=== PATIENT | male | born 1940 | race Hispanic/Latino ===

== ENCOUNTER → 2020-01-06 | Day surgery (SDC) | payer MEDICARE, OTHER ==
[2020-01-01 10:47] LABS: BASOPHILS % 0.6 % (0.0-1.0); EOSINOPHILS # (AUTO) 0.5 (0.0-0.4); EOSINOPHILS % 6.6 % (0.0-6.0); HEMATOCRIT 36.5 % (38.2-49.6); HEMOGLOBIN 11.7 g/dL (14.0-18.0); LYMPHOCYTES # (AUTO) 1.3 (1.0-3.2); LYMPHOCYTES % 19.1 % (18.0-39.1); MEAN CORPUSCULAR HEMOGLOBIN 31.3 pg (28-32); MEAN CORPUSCULAR HGB CONC 32.1 g/dL (31-35); MEAN CORPUSCULAR VOLUME 97.6 fL (81-99); MONOCYTES # (AUTO) 0.6 (0.2-0.8); MONOCYTES % 9.3 % (4.4-11.3); NEUTROPHILS # (AUTO) 4.4 (2.1-6.9); NEUTROPHILS % 64.1 % (38.7-80.0); PLATELET COUNT 199 x10e3/uL (140-360); RED BLOOD COUNT 3.74 x10e6/uL (4.3-5.7); RED CELL DISTRIBUTION WIDTH 13.2 % (11.7-14.4)
[2020-01-01 11:23] LABS: ANION GAP 10.6 mmol/L (8-16); CALCIUM 9.1 mg/dL (8.4-10.2); CREATININE, SERUM 2.2 mg/dL (0.72-1.25); POTASSIUM 4.6 mmol/L (3.5-5.1)
[2020-01-01 11:48] LABS: INR 0.89; PROTHROMBIN TIME 12.6 seconds (11.9-14.5)
--- NOTE | 2020-01-01 14:30 | NUR ---
1430p PRE PROCEDURAL PHONE INTERVIEW for dual pacemaker Dr Cobb. Schedule arrival January 05 at 12n arrival. Pt is observance social distance No active covid symptoms Covid test pending.ds/rn
--- NOTE | 2020-01-01 16:00 | NUR ---
[address] Cobb answering service regarding elevate renal labs. Pt scheduled dual permanent pacer implant on January 05,office asked to return phone call. pablito/rn
--- NOTE | 2020-01-01 17:00 | NUR ---
1700p Dr. Cobb office called no further instructions for renal labs per Ángel Rn ds/rn
[2020-01-06] VITALS (7 sets, daily range): BP systolic 100–188; BP diastolic 47–90
[~2020-01-06] MED LIST: ALLOPURINOL100 MG PO; BACITRACIN 50,000 UNIT VIAL ONE; CEFAZOLIN SOD 2 GM/D5W 50ML 50 ML IV ONE; DORZOLAMIDE-TIM10 ML OP; FENTANYL CITRATE/PF 100MCG/2 ML INJ ONE; GENTAMICIN SULFATE 40 MG/ML 2 ML VIAL IV ONE; ISOPTO CARPINE15 ML OP; LEVOTHYROXINE0.5 GM PO; LEVOTHYROXINE50 MCG PO; LIDOCAINE 1% W/EPINEPHRINE 20 ML VIAL INJ ONE; LOSARTAN POTAS100 MG PO; MIDAZOLAM HCL 2 MG/2 ML VIAL ONE; SODIUM CHLORIDE 0.9% 1000ML 1,000 ML ONE; SODIUM CHLORIDE 0.9% 500ML 500 ML ONE; VANCOMYCIN HCL 1 GM VIAL IV ONE; XALATAN2.5 ML OP; [UNRECOGNIZED DRUG - CODE] SQ; [UNRECOGNIZED DRUG - OTHER] OP
--- NOTE | 2020-01-06 17:11 | NUR ---
1677v Received pt to room#9,bedside report received from SIMON Neal. Alert oriented and appropriate, PERRLA, respirations even and unlabored to room air. Pulses x4 extremities equal and strong. Pedal pulses PT/DP X4 and marked. Cap fill brisk < 3 sec.left sc arm dressing dry and intact with shoulder strap No gross issues pain,pallor,pressure or dysrhythmia. Skin warm and dry integrity appears D/I. IV 20g to left arm, presents healthy w/o s/s of infiltration or complaint. Abdomen soft and supple. pt offered toileting, denies need to urinate or defecate. No personal affects with patient. Family at bedside,Pt and family verbalizes understanding of POC. Currently w/o complaint of pain or need. Patient introduced to cath team and brief summary provided to team.pablito/simon
--- NOTE | 2020-01-06 19:30 | NUR ---
1930 pt c/o mild discomfort from suture site will dc home in 30 minutes aware ivp Med not recommend Offered to reach out to Md for po pain tablet prior to dc and was deferred to go home instead. No active CP or SOB. Tolerating po intake and back to baseline orientation. ds/rn
--- NOTE | 2020-01-06 20:00 | NUR ---
2000pm.pt meets DC criteria. Left sc pacer dressing assessed for s/s of complication and presence of hematoma. Skin warm, dry, no discolor, and pulses present. IV removed from left arm. Distal tip appears intact. VS WNL. Pt denies pain, sob, or need at this time. Family at BS. Review of discharge paperwork and follow up instructions. verbalized understanding. Pt to wheelchair and transported to front of hospital. Transferred to private vehicle under own strength w/o incident with DC paperwork in hand. Pt has mild discomfort at surgical site will go home and take po pain med. There is No active CP or SOB with any arrhythmia issues. Pt has script with and aware to get filled and call md office with any further concerns aware to get f/o appt booked.pablito/ernesto
--- NOTE | 2020-01-06 20:39 | Operative Report ---
DATE OF PROCEDURE: 01/06/2020 SURGEON: Sumeet Souza MD PREPROCEDURE DIAGNOSES: 1. Symptomatic second-degree type 2 AV block. 2. Near syncope, dizziness and no reversible causes. POSTPROCEDURE DIAGNOSES: 1. Symptomatic second-degree type 2 AV block. 2. Near syncope, dizziness and no reversible causes. ESTIMATED BLOOD LOSS: 10 mL. COMPLICATIONS: None. PROCEDURES PERFORMED: 1. Dual chamber pacemaker placement. 2. Moderate sedation. Moderate conscious sedation was provided under my direct supervision by a sedation trained nurse sedation approximate time 30 minutes, Versed and fentanyl. There were no complications. See report for details. DESCRIPTION OF PROCEDURE: After informed consent was obtained, the patient was brought to the electrophysiology laboratory in a fasting, nonsedated state. Area over his chest was prepped and draped in the usual sterile fashion. Moderate sedation and prophylactic antibiotics were given. 1% lidocaine was used as a local anesthetic and a 3 cm skin incision was made in the left subclavicular area. Electrocautery sharp and blunt dissection were used to bridge the muscular fascia and a pocket was created for event implantation of the device. Vascular access was obtained x2 in the left axillary vein using modified Seldinger technique under fluoroscopy guidance. Two sheaths were placed ventricular lead to the RV apex R-wave 6, pacing 0.5 at 0.4, impedance 780, atrial lead to the right atrial appendage, P-wave 2, pacing 0.8 at 0.4, impedance 600. Sheaths were removed from the body. Leads were secured to fascia using Ethibond. Pocket was irrigated with antibiotic solution using the pulse escort blind. Hemostasis was meticulous. Leads were connected to the device and entire pacemaker system placed in the pocket. Incision was closed using absorbable sutures and Dermabond. The patient tolerated the procedure well. Procedure was incomplete. SUMMARY OF HARDWARE IMPLANT: The new pacemaker is a [employer], serial #[id number]. Atrial lead is [employer] [id number]. Ventricular lead is [employer] [id number]. IMPRESSION: Successful dual-chamber pacemaker implant via left axillary vein. PLAN: 1. Routine postop monitoring on telemetry bed. 2. Chest x-ray. 3. Follow up in two weeks. Sumeet Souza MD [facility] /[id number]
== END | disposition home or self-care (01) ==
LOC: CATH LAB 12:01
PROVIDERS: ATTEND Internal Medicine
DX: I44.1 Atrioventricular block, second degree (principal); I45.10 Unspecified right bundle-branch block; E11.9 Type 2 diabetes mellitus without complications; Z01.812 Encounter for preprocedural laboratory examination; Z11.59 Encounter for screening for other viral diseases; Z79.4 Long term (current) use of insulin; Z68.34 Body mass index [BMI] 34.0-34.9, adult; Z82.49 Family history of ischemic heart disease and other diseases of the circulatory system; Z83.3 Family history of diabetes mellitus
CPT/HCPCS: 33208; 36415 ×2; 80048; 82948; 85025; 85610; C1785; C1898; J0690; J1580; J2250; J3010; J3370; J7030; J7040; U0002; 99152; 99153

== ENCOUNTER → 2020-04-11 | Day surgery (SDC) | payer MEDICARE, OTHER ==
[2020-04-06 10:20] LABS: BASOPHILS # (AUTO) 0.1 (0.0-0.1); BASOPHILS % 0.8 % (0.0-1.0); EOSINOPHILS # (AUTO) 0.5 (0.0-0.4); EOSINOPHILS % 6.4 % (0.0-6.0); HEMATOCRIT 32.3 % (38.2-49.6); HEMOGLOBIN 10.7 g/dL (14.0-18.0); LYMPHOCYTES # (AUTO) 1.2 (1.0-3.2); LYMPHOCYTES % 16.7 % (18.0-39.1); MEAN CORPUSCULAR HEMOGLOBIN 32.4 pg (28-32); MEAN CORPUSCULAR HGB CONC 33.1 g/dL (31-35); MEAN CORPUSCULAR VOLUME 97.9 fL (81-99); MONOCYTES % 13.4 % (4.4-11.3); NEUTROPHILS # (AUTO) 4.5 (2.1-6.9); NEUTROPHILS % 62.4 % (38.7-80.0); PLATELET COUNT 205 x10e3/uL (140-360); RED CELL DISTRIBUTION WIDTH 13.4 % (11.7-14.4)
[2020-04-06 10:30] LABS: INR 0.97; PROTHROMBIN TIME 13.4 seconds (11.9-14.5)
[2020-04-06 10:36] LABS: ALBUMIN 3.6 g/dL (3.5-5.0); ALBUMIN/GLOBULIN RATIO 1.1 (0.8-2.0); ANION GAP 11.2 mmol/L (8-16); CALCIUM 8.9 mg/dL (8.4-10.2); CREATININE, SERUM 1.58 mg/dL (0.72-1.25); POTASSIUM 4.2 mmol/L (3.5-5.1)
--- NOTE | 2020-04-08 13:15 | NUR ---
Pt contacted by phone for interview of scheduled procedure. Review of medical history and current medications. Procedural consent on day of arrival to be completed, pre-op orders, and twice bathing education completed. All questions clarified and or answered where appropriate. pt verbalizes understanding to include day of procedure expectations and practice social distancing. Pt aware to be using provided/ personal mask for COVID-19 mitigation. - cgf
[2020-04-11] VITALS (9 sets, daily range): BP systolic 130–151; BP diastolic 51–97
[~2020-04-11] VITALS: Ht 180.3 cm; Wt 79.4 kg
[~2020-04-11] MED LIST changes: -BACITRACIN 50,000 UNIT VIAL ONE; -CEFAZOLIN SOD 2 GM/D5W 50ML 50 ML IV ONE; -GENTAMICIN SULFATE 40 MG/ML 2 ML VIAL IV ONE; +HEPARIN SOD (PORCINE) 1000 UNIT/ML 30ML ONE; +HEPARIN SOD/SOD CHLORIDE 2,000 ML ONE; +IOPAMIDOL 370 MG/ML 200 ML INFUS..BTL INJ ONE; -LIDOCAINE 1% W/EPINEPHRINE 20 ML VIAL INJ ONE; +LIDOCAINE HCL 2% LOCAL 20 ML VIAL ONE; +NITROGLYCERIN/D5W 200 MCG/ML 250 ML ONE; -SODIUM CHLORIDE 0.9% 500ML 500 ML ONE; -VANCOMYCIN HCL 1 GM VIAL IV ONE; +VERAPAMIL HCL 2.5 MG/ML 2 ML VIAL ONE
--- NOTE | 2020-04-21 11:37 | Operative Report ---
DATE OF PROCEDURE: 04/11/2020 SURGEON: Beto Coates DO PROCEDURES PERFORMED: 1. Conscious sedation, 26 minutes. 2. Selective coronary angiography x2. 3. Left heart catheterization. PREPROCEDURE DIAGNOSIS: Abnormal stress test. POSTPROCEDURE DIAGNOSIS: Coronary artery disease. ESTIMATED BLOOD LOSS: Less than 20 mL. SPECIMENS REMOVED: None. PROCEDURE IN DETAIL: After informed consent was obtained, the patient was brought to the cardiac catheterization laboratory in a fasting and nonsedated state. Bilateral groins and right wrist were prepped and draped in the usual sterile fashion. A 2% lidocaine was instilled over the right wrist for local anesthesia. The patient received fentanyl and midazolam administered by the shellfish processing laborer nurse, and his neurologic status was monitored by myself and shellfish processing laborer staff for 26 minutes. Next, using micropuncture needle, the right radial artery was accessed via modified Seldinger technique and a 5/6 Slender sheath was placed. Next, diagnostic selective coronary angiography and left heart catheterization were performed. The patient tolerated the procedure well, no immediate complications. He was brought to his room in stable condition. FINDINGS: 1. Ostial left main has a 20% non-flow limiting stenosis. 2. Left anterior descending coronary artery has a mid 70% stenosis with ROMARIO-3 flow. 3. Left circumflex coronary artery is patent with two obtuse marginal vessels. 4. Right coronary artery is a mild distal 20% stenosis and provides flow in the posterior lateral branch and posterior descending coronary artery. 5. Left ventricular end-diastolic pressure is 12 mmHg. No aortic valve gradient present upon pullback. IMPRESSION: Coronary artery disease. RECOMMENDATIONS: The patient may proceed with surgery, then undergo staged PCI of the LAD. Beto Coates DO [facility] /[id number]
== END | disposition home or self-care (01) ==
LOC: CATH LAB 07:00
PROVIDERS: ATTEND Internal Medicine Cardiovascular Disease
DX: I25.10 Atherosclerotic heart disease of native coronary artery without angina pectoris (principal); R94.39 Abnormal result of other cardiovascular function study; I44.1 Atrioventricular block, second degree; R00.1 Bradycardia, unspecified; I10 Essential (primary) hypertension; I73.9 Peripheral vascular disease, unspecified; E13.69 Other specified diabetes mellitus with other specified complication; Z01.812 Encounter for preprocedural laboratory examination; Z11.59 Encounter for screening for other viral diseases; Z79.4 Long term (current) use of insulin; Z95.0 Presence of cardiac pacemaker; Z82.49 Family history of ischemic heart disease and other diseases of the circulatory system; Z83.3 Family history of diabetes mellitus
CPT/HCPCS: 36415; 80053; 85025; 85610; 93458; C1887; J1644; J2001; J2250; J3010; J7030; Q9967; U0002; 99152

== ENCOUNTER 2020-05-05 10:00 | Observation (INO) | payer MEDICARE ==
[2020-05-02 10:35] LABS: BASOPHILS % 0.5 % (0.0-1.0); EOSINOPHILS # (AUTO) 0.5 (0.0-0.4); EOSINOPHILS % 6.2 % (0.0-6.0); HEMATOCRIT 35.7 % (38.2-49.6); HEMOGLOBIN 11.7 g/dL (14.0-18.0); LYMPHOCYTES # (AUTO) 1.3 (1.0-3.2); LYMPHOCYTES % 17.6 % (18.0-39.1); MEAN CORPUSCULAR HEMOGLOBIN 32.1 pg (28-32); MEAN CORPUSCULAR HGB CONC 32.8 g/dL (31-35); MEAN CORPUSCULAR VOLUME 98.1 fL (81-99); MONOCYTES # (AUTO) 0.9 (0.2-0.8); MONOCYTES % 11.8 % (4.4-11.3); NEUTROPHILS # (AUTO) 4.9 (2.1-6.9); NEUTROPHILS % 63.6 % (38.7-80.0); PLATELET COUNT 202 x10e3/uL (140-360); RED BLOOD COUNT 3.64 x10e6/uL (4.3-5.7); RED CELL DISTRIBUTION WIDTH 12.9 % (11.7-14.4)
[2020-05-02 10:44] LABS: INR 0.96; PROTHROMBIN TIME 13.3 seconds (11.9-14.5)
[2020-05-02 10:55] LABS: ALBUMIN 3.8 g/dL (3.5-5.0); ALBUMIN/GLOBULIN RATIO 1.1 (0.8-2.0); ANION GAP 11.3 mmol/L (8-16); CALCIUM 9.1 mg/dL (8.4-10.2); CREATININE, SERUM 1.68 mg/dL (0.72-1.25); POTASSIUM 4.3 mmol/L (3.5-5.1)
[~2020-05-05] VITALS: Ht 180.3 cm; Wt 78.9 kg
[2020-05-05] VITALS (11 sets, daily range): BP systolic 102–180; BP diastolic 63–85
[~2020-05-05 10:00] MED LIST changes: +BRIMONIDINE TAR10 ML OP; -FENTANYL CITRATE/PF 100MCG/2 ML INJ ONE; -HEPARIN SOD (PORCINE) 1000 UNIT/ML 30ML ONE; -HEPARIN SOD/SOD CHLORIDE 2,000 ML ONE; +HUMULIN SC; -IOPAMIDOL 370 MG/ML 200 ML INFUS..BTL INJ ONE; -LIDOCAINE HCL 2% LOCAL 20 ML VIAL ONE; -MIDAZOLAM HCL 2 MG/2 ML VIAL ONE; -NITROGLYCERIN/D5W 200 MCG/ML 250 ML ONE; +NOVOLOG MI100 UNIT/1 SC; -SODIUM CHLORIDE 0.9% 1000ML 1,000 ML ONE; -VERAPAMIL HCL 2.5 MG/ML 2 ML VIAL ONE
[2020-05-05] MEDS ORDERED: LIDOCAINE HCL 2% LOCAL 20 ML VIAL ONE (11:44)
[2020-05-05] MEDS ORDERED: MIDAZOLAM HCL 2 MG/2 ML VIAL ONE (11:44)
[2020-05-05] MEDS ORDERED: FENTANYL CITRATE/PF 100MCG/2 ML INJ ONE (11:44)
[2020-05-05] MEDS ORDERED: VERAPAMIL HCL 2.5 MG/ML 2 ML VIAL ONE (11:44)
[2020-05-05] MEDS ORDERED: HEPARIN SOD/SOD CHLORIDE 2,000 ML ONE (11:45)
[2020-05-05] MEDS ORDERED: IOPAMIDOL 370 MG/ML 200 ML INFUS..BTL INJ ONE (11:45)
[2020-05-05] MEDS ORDERED: SODIUM CHLORIDE 0.9% 1000ML 1,000 ML ONE (11:45)
[2020-05-05] MEDS ORDERED: TICAGRELOR 90 MG TABLET ONE (15:12)
[2020-05-05] MEDS ORDERED: ASPIRIN 325 MG TAB ONE (15:13)
[2020-05-05] MEDS ORDERED: SODIUM CHLORIDE 0.9% 1000ML 1,000 ML IV ONE (18:15)
[2020-05-05] MEDS ORDERED: ACETAMINOPHEN 325 MG TAB PO PRN (18:15)
[2020-05-05] MEDS ORDERED: MORPHINE SULFATE 2 MG/ML SYR 1ML IV PRN (18:15)
[2020-05-05] MEDS: PILOCARPINE HCL(OPTH) 15 ML LIQD OP SCH ×3 (19:00→22:00)
[2020-05-05] MEDS: BRIMONIDINE TARTRATE 0.15% OPTH DRPS 10ML BTL OP SCH (20:32)
[2020-05-05] MEDS ORDERED: LATANOPROST(OPTH) 2.5 ML BTL OP SCH (21:00)
[2020-05-06] VITALS: BP 143/64
[2020-05-06 04:00] VITALS: BP 164/61
[2020-05-06 05:12] LABS: BASOPHILS % 0.6 % (0.0-1.0); EOSINOPHILS # (AUTO) 0.4 (0.0-0.4); EOSINOPHILS % 6.9 % (0.0-6.0); HEMATOCRIT 32.3 % (38.2-49.6); LYMPHOCYTES % 16.5 % (18.0-39.1); MEAN CORPUSCULAR HEMOGLOBIN 32.9 pg (28-32); MEAN CORPUSCULAR HGB CONC 34.1 g/dL (31-35); MEAN CORPUSCULAR VOLUME 96.7 fL (81-99); MONOCYTES # (AUTO) 0.8 (0.2-0.8); MONOCYTES % 12.9 % (4.4-11.3); NEUTROPHILS # (AUTO) 3.9 (2.1-6.9); NEUTROPHILS % 62.8 % (38.7-80.0); PLATELET COUNT 193 x10e3/uL (140-360); RED BLOOD COUNT 3.34 x10e6/uL (4.3-5.7); RED CELL DISTRIBUTION WIDTH 12.6 % (11.7-14.4)
[2020-05-06 05:29] LABS: CALCIUM 8.3 mg/dL (8.4-10.2); CREATININE, SERUM 1.3 mg/dL (0.72-1.25)
[2020-05-06] MEDS ORDERED: LEVOTHYROXINE SODIUM 50 MCG TAB PO SCH (06:00)
[2020-05-06] MEDS ORDERED: HUMULIN 70/30 VIAL SQ SCH (07:30)
[2020-05-06 08:27] VITALS: BP 157/65
[2020-05-06] MEDS: BRIMONIDINE TARTRATE 0.15% OPTH DRPS 10ML BTL OP SCH (08:29)
[2020-05-06 08:49] VITALS: BP 157/65
[2020-05-06] MEDS ORDERED: LOSARTAN POTASSIUM 100 MG TAB PO SCH (09:00)
[2020-05-06] MEDS ORDERED: ALLOPURINOL 100 MG TAB PO SCH (09:00)
[2020-05-06] MEDS ORDERED: DORZOLAMIDE/TIMOLOL (OPTH SOL) 10 ML DRPETTE OP SCH (09:00)
[2020-05-06] MEDS: PILOCARPINE HCL(OPTH) 15 ML LIQD OP SCH (09:00)
[2020-05-06] MEDS ORDERED: BRILINTA90 MG PO (11:55)
== END 2020-05-06 12:47 | disposition home or self-care (01) ==
LOC: CATH LAB 10:00 → MED/SURG 17:47
PROVIDERS: ADMIT Internal Medicine Cardiovascular Disease; ATTEND Internal Medicine Cardiovascular Disease
DX: I25.10 Atherosclerotic heart disease of native coronary artery without angina pectoris (principal); I44.1 Atrioventricular block, second degree; I10 Essential (primary) hypertension; I73.9 Peripheral vascular disease, unspecified; R00.1 Bradycardia, unspecified; Z95.0 Presence of cardiac pacemaker; R94.30 Abnormal result of cardiovascular function study, unspecified; Z01.812 Encounter for preprocedural laboratory examination; Z20.828 Contact with and (suspected) exposure to other viral communicable diseases; Z89.429 Acquired absence of other toe(s), unspecified side; Z82.49 Family history of ischemic heart disease and other diseases of the circulatory system
CPT/HCPCS: 93454; C9600; 36415; 80048; 80053; 85025; 85610; 92920; 92928; 99152; 99153; C1874; G0378; J2001; J2250; J3010; J7030; Q9967; U0002

== ENCOUNTER 2025-01-28 05:46 | Day surgery (SDC) | payer MEDICARE ==
[2025-01-25 12:15] LABS: BASOPHILS % 0.7 % (0.0-1.0); EOSINOPHILS % 2.9 % (0.0-6.0); LYMPHOCYTES % 12.0 % (18.0-39.1); MONOCYTES % 10.1 % (4.4-11.3); NEUTROPHILS % 73.9 % (38.7-80.0); RED CELL DISTRIBUTION WIDTH 12.3 % (11.7-14.4)
[2025-01-25 12:36] LABS: INR 0.95
[2025-01-25 12:41] LABS: CHOL/HDL RATIO 2.1 (3.9-4.7); EST GLOMERULAR FILTRATION RATE 60.0 ML/MIN (>=60); LDL CHOLESTEROL 52.0 MG/DL (60-130)
[2025-01-28] VITALS (14 sets, daily range): BP systolic 125–166; BP diastolic 59–75; PULSE 60–73; RESP 11–19; TEMP 97.1; O2SAT 100
[~2025-01-28] VITALS: Ht 170.2 cm; Wt 69.9 kg
[~2025-01-28 05:46] MED LIST changes: +ASPIRIN81 MG PO; +AVODART0.5 MG PO; +BRILINTA90 MG PO; +CLOPIDOGREL75 MG PO; +FLOMAX0.4 MG PO; +FUROSEMIDE20 MG PO; +HUMULIN 70100 UNIT/1 SC; +LEVOTHYROXINE75 MCG PO; +LIPITOR20 MG PO
[2025-01-28] MEDS ORDERED: VERAPAMIL HCL 2.5 MG/ML 2 ML VIAL ONE (06:39)
[2025-01-28] MEDS ORDERED: HEPARIN SOD/SOD CHLORIDE 2,000 ML ONE (06:39)
[2025-01-28] MEDS ORDERED: HEPARIN SOD (PORCINE) 1000 UNIT/ML 30ML ONE (06:39)
[2025-01-28] MEDS ORDERED: LIDOCAINE HCL 2% LOCAL 20 ML VIAL ONE (06:39)
[2025-01-28] MEDS ORDERED: NITROGLYCERIN/D5W 200 MCG/ML 250 ML ONE (06:40)
[2025-01-28] MEDS ORDERED: IOPAMIDOL 370 MG/ML 100 ML INFUS..BTL INJ ONE ×2 (06:40→08:25)
[2025-01-28] MEDS ORDERED: SODIUM CHLORIDE 0.9% 1000ML 1,000 ML ONE (06:40)
[2025-01-28] MEDS ORDERED: MIDAZOLAM HCL 2 MG/2 ML VIAL ONE ×2 (07:20→08:24)
[2025-01-28] MEDS ORDERED: FENTANYL CITRATE/PF 100MCG/2 ML INJ ONE ×2 (07:20→08:25)
[2025-01-28] MEDS ORDERED: SODIUM CHLORIDE 0.9% 100 ML ONE (08:47)
[2025-01-28] MEDS ORDERED: PHENYLEPHRINE HCL 1% 10 MG/ML VIAL ONE (08:47)
== END 2025-01-28 12:25 | disposition home or self-care (01) ==
LOC: CATH LAB 05:46
PROVIDERS: ATTEND Internal Medicine Cardiovascular Disease
DX: I25.110 Atherosclerotic heart disease of native coronary artery with unstable angina pectoris (principal); R94.39 Abnormal result of other cardiovascular function study; Z95.5 Presence of coronary angioplasty implant and graft; I45.10 Unspecified right bundle-branch block; E11.9 Type 2 diabetes mellitus without complications; Z01.810 Encounter for preprocedural cardiovascular examination; Z01.812 Encounter for preprocedural laboratory examination; Z01.818 Encounter for other preprocedural examination; Z79.4 Long term (current) use of insulin; Z79.02 Long term (current) use of antithrombotics/antiplatelets; Z79.899 Other long term (current) drug therapy; Z79.82 Long term (current) use of aspirin; Z95.0 Presence of cardiac pacemaker; Z89.429 Acquired absence of other toe(s), unspecified side
CPT/HCPCS: 36415 ×2; 71046; 76937; 80048; 80061; 82948; 85025; 85610; 85730; 93005; 93458; C1769; C1887; J1644; J2003; J2250; J2371; J3010; J7030; J7050; Q9967; 93454; 99152; 99153